=== PATIENT | male | born 1975 | race Caucasian/White ===

== ENCOUNTER 2023-05-07 00:28 | Emergency (ER) | payer BC, SELFPAY ==
[2023-05-06 23:55] VITALS: BP 152/86; PULSE 93; RESP 18; TEMP 36.7; O2SAT 99; BMI 39.5
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
--- NOTE | 2023-05-07 00:13 | XR_ITS ---
[facility] [place] [id number] Patient Name: OMI CAMACHO MRN: [id number] date: 1975 Sex: M Assigned Patient Location: ED.MAIN Current Patient Location: ER Accession/Order Number: [id number] Exam Date: 05/07/2023 01:48 Report Date: 05/07/2023 02:16 At the request of: MALRA ZHOU Procedure: XR chest 1V EXAM: XR chest 1V HISTORY: right shoulder pain COMPARISON: None. TECHNIQUE: One view of the chest was obtained. FINDINGS: There are postsurgical changes of the chest with median sternotomy wires in place. The cardiac silhouette is normal in size. The lungs are clear. There is no significant pneumothorax or pleural effusion. No acute osseous abnormality is seen. XR/XR chest 1V IMPRESSION: 1. No acute cardiopulmonary abnormality. Electronically authenticated by: Fabien HODGES Date: 05/07/2023 02:16
--- NOTE | 2023-05-07 00:13 | XR_ITS ---
The [address] [address] Patient Name: OMI CAMACHO MRN: [id number] date: 1975 Sex: M Assigned Patient Location: ED.MAIN Current Patient Location: ER Accession/Order Number: [id number] Exam Date: 05/07/2023 01:48 Report Date: 05/07/2023 02:14 At the request of: MARLA ZHOU Procedure: XR shoulder RT min 2V EXAM: XR shoulder RT min 2V HISTORY: pain COMPARISON: None. TECHNIQUE: 3 views of the right shoulder were obtained. FINDINGS: No acute fracture or dislocation is seen. The humeral head is well-seated on the glenoid. The acromioclavicular and coracoclavicular distances are preserved. There are hypoventilatory changes in the right lung. XR/XR shoulder RT min 2V IMPRESSION: 1. No acute fracture or dislocation of the right shoulder is seen. If there is concern for internal derangement, a nonemergent outpatient MRI is recommended. Electronically authenticated by: Fabien HODGES Date: 05/07/2023 02:14
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
[2023-05-07] MEDS: OXYCODONE HCL 5 MG TABLET 10 MG PO (03:07)
== END 2023-05-07 04:04 ==
PROVIDERS: Emergency Provider Internal Medicine; PCP Family Medicine
DX: M25.511 Pain in right shoulder (principal); Z79.899 Other long term (current) drug therapy; Z79.4 Long term (current) use of insulin; Z87.81 Personal history of (healed) traumatic fracture
CPT/HCPCS: 71045; 73030; 99285

== ENCOUNTER 2023-07-04 09:00 | Outpatient (RCR) | payer BC, SELFPAY | END 2023-08-17 07:53 | disposition home or self-care (01) | LOC: PT 09:00 | PROVIDERS: PCP Family Medicine; Visit Provider Family Medicine | DX: S53.125D Posterior dislocation of left ulnohumeral joint, subsequent encounter (principal); S82.251K Displaced comminuted fracture of shaft of right tibia, subsequent encounter for closed fracture with nonunion; S42.001D Fracture of unspecified part of right clavicle, subsequent encounter for fracture with routine healing; S32.511D Fracture of superior rim of right pubis, subsequent encounter for fracture with routine healing; S02.113D Unspecified occipital condyle fracture, subsequent encounter for fracture with routine healing; S02.81XD Fracture of other specified skull and facial bones, right side, subsequent encounter for fracture with routine healing; S82.251D Displaced comminuted fracture of shaft of right tibia, subsequent encounter for closed fracture with routine healing; S46.091D Other injury of muscle(s) and tendon(s) of the rotator cuff of right shoulder, subsequent encounter; M16.0 Bilateral primary osteoarthritis of hip; M62.81 Muscle weakness (generalized); M54.50 Low back pain, unspecified | CPT/HCPCS: 97110; 97112; 97140; 97163; 97530 ==

== ENCOUNTER 2023-08-01 14:58 | Outpatient (RCR) | payer BC, SELFPAY | END 2023-08-17 07:53 | disposition home or self-care (01) | LOC: OT 14:58 | PROVIDERS: PCP Family Medicine; Visit Provider Family Medicine | DX: S53.105D Unspecified dislocation of left ulnohumeral joint, subsequent encounter (principal) | CPT/HCPCS: 97165 ==

== ENCOUNTER 2023-08-18 09:58 | Outpatient (RCR) | payer BC, SELFPAY | END 2023-09-06 15:49 | disposition home or self-care (01) | LOC: PT 09:58 | PROVIDERS: PCP Family Medicine; Visit Provider Family Medicine | DX: S53.125D Posterior dislocation of left ulnohumeral joint, subsequent encounter (principal); S82.251K Displaced comminuted fracture of shaft of right tibia, subsequent encounter for closed fracture with nonunion; S42.001D Fracture of unspecified part of right clavicle, subsequent encounter for fracture with routine healing; S32.511D Fracture of superior rim of right pubis, subsequent encounter for fracture with routine healing; S02.113D Unspecified occipital condyle fracture, subsequent encounter for fracture with routine healing; S02.81XD Fracture of other specified skull and facial bones, right side, subsequent encounter for fracture with routine healing; S82.251D Displaced comminuted fracture of shaft of right tibia, subsequent encounter for closed fracture with routine healing; S46.091D Other injury of muscle(s) and tendon(s) of the rotator cuff of right shoulder, subsequent encounter; M16.0 Bilateral primary osteoarthritis of hip; M54.50 Low back pain, unspecified | CPT/HCPCS: 97110; 97112; 97530 ==

== ENCOUNTER 2023-08-18 10:02 | Outpatient (RCR) | payer BC, SELFPAY | END 2023-09-06 15:48 | disposition home or self-care (01) | LOC: OT 10:02 | PROVIDERS: PCP Family Medicine; Visit Provider Family Medicine | DX: M25.522 Pain in left elbow (principal) | CPT/HCPCS: 97140; 97530 ==

== ENCOUNTER 2023-10-07 16:16 | Outpatient (OUT) | payer BC, SELFPAY ==
[2023-10-07 17:01] LABS: Estimated Average Glucose 324 mg/dL; Glycohemoglobin A1C 12.9 % (4.5-6.2)
== END 2023-10-07 16:17 | disposition home or self-care (01) ==
PROVIDERS: PCP Family Medicine; Visit Provider Family Medicine
DX: Z01.818 Encounter for other preprocedural examination (principal)
CPT/HCPCS: 36415; 83036